=== PATIENT | female | born 1950 | race Caucasian/White ===

== ENCOUNTER 2017-03-15 11:43 | Inpatient (IN) | payer MEDICARE ==
[~2017-03-15] VITALS: Ht 170.2 cm; Wt 93.1 kg
[2017-03-15] MEDS: INSULIN ASPART 100 UNITS/ML, PEN SQ-INSULIN SCH ×5 (05:20→22:00)
[~2017-03-15 11:43] MED LIST: CALCIUM CHLORIDE 10%, 10ML SYR ONE
[2017-03-15] MEDS ORDERED: DEXTROSE 5% 1,000 ML IV SCH (12:00)
[2017-03-15] MEDS ORDERED: SODIUM CHLORIDE FLUSH 10ML SYR IVF ONE (12:00)
[2017-03-15] MEDS ORDERED: D5%-0.9% NACL 1,000 ML IV ONE (12:10)
[2017-03-15 12:40] LABS: BASOPHILS # (AUTO) 0.08 x10^3/uL (0-0.1); BASOPHILS % (AUTO) 1 % (0-1); EOSINOPHILS % (AUTO) 5 % (1-7); LYMPHOCYTES # (AUTO) 4.91 x10^3/uL (1-3.4); LYMPHOCYTES % (AUTO) 38 % (22-44); MD NO; MEAN CORPUSCULAR HGB CONC 33.3 g/dL (32.4-35.8); MEAN CORPUSCULAR VOLUME 90.1 fL (80-100); MONOCYTES % (AUTO) 6 % (2-9); NEUTROPHILS # (AUTO) 6.47 x10^3/uL (1.8-6.8); NEUTROPHILS % (AUTO) 50 % (42-75); PLATELET COUNT 355 x10^3/uL (130-400); RED BLOOD COUNT 3.76 x10^6/uL (3.82-5.3); RED CELL DISTRIBUTION WIDTH 13.8 % (9.6-15.2)
[2017-03-15 12:44] LABS: ALBUMIN 3.1 g/dL (3.4-5.0); ANION GAP 6 mmol/L (5-15); CALCIUM 8.1 mg/dL (8.5-10.1); CHLORIDE 105 mmol/L (98-107)
[2017-03-15 12:51] LABS: ALANINE AMINOTRANSFERASE 42 U/L (12-78); ALKALINE PHOSPHATASE 102 U/L (45-117); BILIRUBIN,TOTAL 0.5 mg/dL (0.2-1.0); CREATININE 1.53 mg/dL (0.55-1.02); TOTAL PROTEIN 7.2 g/dL (6.4-8.2); TROPONIN I 0.059 ng/mL (0.000-0.045)
[2017-03-15] MEDS ORDERED: CALCIUM CHLORIDE 10%, 10ML SYR ONE (12:53)
[2017-03-15] MEDS ORDERED: DEXTROSE 50%, 50ML SYRINGE ONE (12:54)
[2017-03-15] MEDS ORDERED: SODIUM POLYSTYRENE SULFONATE ORAL SUSP ONE (12:54)
[2017-03-15] MEDS ORDERED: INSULIN REGULAR 100 UNITS/ML, 3ML VIAL ONE (12:55)
[2017-03-15] MEDS ORDERED: DEXTROSE 50%, 50ML SYRINGE IVPush ONE (13:00)
[2017-03-15] MEDS ORDERED: FUROSEMIDE 40 MG/4 ML IVPush ONE (13:00)
[2017-03-15] MEDS ORDERED: SODIUM POLY SULFONATE UDC 15 GM/60 ML PO ONE (13:00)
[2017-03-15] MEDS ORDERED: INSULIN REGULAR 100 UNITS/ML, 3ML VIAL IVPush ONE (13:00)
[2017-03-15] MEDS ORDERED: CALCIUM CHLORIDE 10%, 10ML SYR IVPush ONE (13:00)
[2017-03-15] MEDS ORDERED: FUROSEMIDE 40 MG/4 ML ONE (13:06)
[2017-03-15] MEDS ORDERED: SODIUM CHLORIDE 0.9% 1,000 ML IV SCH (13:31)
[2017-03-15] MEDS ORDERED: ACETAMINOPHEN 325 MG TABLET PO PRN (14:00)
[2017-03-15] MEDS ORDERED: hydrALAzine 20 MG/ML, 1ML IV PRN (14:00)
[2017-03-15] MEDS ORDERED: POLYETHYLENE GLYCOL 17 GM PACKET PO PRN (14:00)
[2017-03-15] MEDS ORDERED: ONDANSETRON 2MG/ML, 2ML IVPush PRN (14:00)
[2017-03-15] MEDS ORDERED: morphine SULFATE 10 MG/ML, 1ML IVPush PRN (14:00)
[2017-03-15] MEDS: HEPARIN 5,000 UNITS/ML, 1ML SQ SCH ×2 (14:00→22:05)
[2017-03-15] MEDS ORDERED: DOCUSATE 100 MG CAPSULE PO PRN (14:00)
[2017-03-15] MEDS ORDERED: CARV12.543 PO (15:03)
[2017-03-15] MEDS ORDERED: GABA300C10 PO (15:03)
[2017-03-15] MEDS ORDERED: SPIR25TA3 PO (15:04)
[2017-03-15] MEDS ORDERED: LINA5TAB PO (15:04)
[2017-03-15] MEDS ORDERED: INSU100V8 SQ (15:04)
[2017-03-15] MEDS ORDERED: MELO15TA24 PO (15:04)
[2017-03-15] MEDS ORDERED: INSU100C SQ-INSULIN (15:04)
[2017-03-15] MEDS ORDERED: IRBE300T16 PO (15:04)
[2017-03-15] MEDS ORDERED: OMEP40CA6 PO (15:04)
[2017-03-15] MEDS ORDERED: DICL50TA2 PO (15:04)
[2017-03-15] MEDS ORDERED: GLYB5TAB3 PO (15:04)
[2017-03-15] MEDS ORDERED: ATOR40TA78 PO (15:04)
[2017-03-15] MEDS ORDERED: AMLO5TAB2 PO (15:04)
[2017-03-15 15:13] LABS: MICROSCOPIC NOT IND
[2017-03-15 15:18] LABS: CULTURE INDICATED? NO
[2017-03-15 15:18] LABS: HEMOGLOBIN A1C 8.9 % (4.2-6.3)
[2017-03-15] MEDS: GABAPENTIN 300 MG CAPSULE PO SCH ×2 (16:00→22:02)
[2017-03-15] MEDS ORDERED: OXYcodone IR 5MG TABLET PO PRN (16:00)
[2017-03-15 16:24] LABS: ANION GAP 6 mmol/L (5-15); CALCIUM 9.5 mg/dL (8.5-10.1); CHLORIDE 107 mmol/L (98-107)
[2017-03-15] MEDS ORDERED: CALCIUM CHLORIDE 13.6 MEQ in SODIUM CHLORIDE 0.9% 100 ML IV ONE (16:30)
[2017-03-15 16:39] LABS: CREATININE 1.47 mg/dL (0.55-1.02)
[2017-03-15 16:42] LABS: TROPONIN I 0.479 ng/mL (0.000-0.045)
[2017-03-15 18:06] LABS: ANION GAP 4 mmol/L (5-15); CALCIUM 8.9 mg/dL (8.5-10.1); CHLORIDE 105 mmol/L (98-107); CREATININE 1.02 mg/dL (0.55-1.02)
[2017-03-15 19:40] LABS: RAPID INFLUENZA A Negative (Negative); RAPID INFLUENZA B Negative (Negative)
[2017-03-15] MEDS: D5%-0.9% NACL 1,000 ML IV SCH (19:55)
[2017-03-15] MEDS ORDERED: DEXTROSE 4 GM TAB.CHEW PO PRN (20:00)
[2017-03-15] MEDS ORDERED: GLUCAGON 1 MG IM PRN (20:00)
[2017-03-15] MEDS ORDERED: DEXTROSE 50%, 50ML SYRINGE IVPush PRN (20:00)
[2017-03-15 20:29] LABS: ANION GAP 6 mmol/L (5-15); CALCIUM 8.4 mg/dL (8.5-10.1); CHLORIDE 101 mmol/L (98-107)
[2017-03-15] MEDS: ATORVASTATIN 40 MG TABLET PO SCH (22:02)
[2017-03-15] MEDS: SODIUM CHLORIDE FLUSH 10ML SYR IVF SCH (22:02)
[2017-03-15 22:36] LABS: ANION GAP 6 mmol/L (5-15); CALCIUM 8.5 mg/dL (8.5-10.1); CHLORIDE 104 mmol/L (98-107); CREATININE 0.84 mg/dL (0.55-1.02)
[2017-03-16 00:37] LABS: ANION GAP 6 mmol/L (5-15); CALCIUM 8.1 mg/dL (8.5-10.1); CHLORIDE 106 mmol/L (98-107); CREATININE 0.98 mg/dL (0.55-1.02)
[2017-03-16] MEDS: INSULIN ASPART 100 UNITS/ML, PEN SQ-INSULIN SCH ×10 (02:00→22:33)
[2017-03-16 02:32] LABS: ANION GAP 6 mmol/L (5-15); CHLORIDE 107 mmol/L (98-107); CREATININE 1.01 mg/dL (0.55-1.02)
[2017-03-16 04:00] VITALS: BP 102/68
[2017-03-16 04:30] LABS: ANION GAP 5 mmol/L (5-15); CALCIUM 8.1 mg/dL (8.5-10.1); CHLORIDE 107 mmol/L (98-107); CREATININE 1.03 mg/dL (0.55-1.02)
[2017-03-16] MEDS: D5%-0.9% NACL 1,000 ML IV SCH (05:37)
[2017-03-16] MEDS: HEPARIN 5,000 UNITS/ML, 1ML SQ SCH (06:01)
[2017-03-16 06:50] LABS: ANION GAP 6 mmol/L (5-15); CALCIUM 8.2 mg/dL (8.5-10.1); CHLORIDE 108 mmol/L (98-107); CREATININE 1.08 mg/dL (0.55-1.02)
[2017-03-16] MEDS: OMEPRAZOLE 20 MG CAPSULE.DR PO SCH (08:36)
[2017-03-16] MEDS: GABAPENTIN 300 MG CAPSULE PO SCH ×3 (08:36→22:32)
[2017-03-16] MEDS: SENNA/DOCUSATE TABLET PO SCH (08:36)
[2017-03-16] MEDS ORDERED: AMLODIPINE 5 MG TABLET PO SCH (09:00)
[2017-03-16] MEDS ORDERED: IRBESARTAN 300 MG TABLET PO SCH (09:00)
[2017-03-16] MEDS: D5%-0.45% NACL 1,000 ML IV SCH (11:51)
[2017-03-16] MEDS: SODIUM CHLORIDE FLUSH 10ML SYR IVF SCH ×2 (11:51→22:33)
[2017-03-16] MEDS ORDERED: HEPARIN 25,000 UNITS/500ML PMX 500 ML IV PRN ×2 (13:30→14:00)
[2017-03-16] MEDS ORDERED: PNEUMOCOCCAL 23 VACCINE IM-VACC ONE (14:00)
[2017-03-16 14:50] VITALS: BP 145/82
[2017-03-16] MEDS ORDERED: HEPARIN 5,000 UNITS/ML, 1ML IV ONE (15:30)
[2017-03-16] MEDS: HEPARIN 25,000 UNITS/500ML PMX 500 ML IV PRN (16:53)
[2017-03-16] MEDS: METOPROLOL TARTRATE 25 MG TABLET PO SCH (17:01)
[2017-03-16 21:16] VITALS: BP 122/76
[2017-03-16] MEDS: ATORVASTATIN 40 MG TABLET PO SCH (22:32)
[2017-03-17] VITALS (7 sets, daily range): BP systolic 128–164; BP diastolic 73–84
[2017-03-17] MEDS: HEPARIN 5,000 UNITS/ML, 1ML IV PRN ×3 (00:20→20:49)
[2017-03-17] MEDS: METOPROLOL TARTRATE 25 MG TABLET PO SCH ×2 (06:18→17:06)
[2017-03-17] MEDS: ASPIRIN 81 MG TABLET EC PO SCH (06:18)
[2017-03-17 06:58] LABS: BASOPHILS # (AUTO) 0.04 x10^3/uL (0-0.1); BASOPHILS % (AUTO) 0 % (0-1); EOSINOPHILS # (AUTO) 0.53 x10^3/uL (0-0.4); EOSINOPHILS % (AUTO) 6 % (1-7); LYMPHOCYTES # (AUTO) 3.66 x10^3/uL (1-3.4); LYMPHOCYTES % (AUTO) 39 % (22-44); MD NO; MEAN CORPUSCULAR HEMOGLOBIN 29.9 pg (27.0-34.8); MEAN CORPUSCULAR HGB CONC 33.1 g/dL (32.4-35.8); MEAN CORPUSCULAR VOLUME 90.3 fL (80-100); MEAN PLATELET VOLUME 7.4 fL (7.4-10.4); MONOCYTES % (AUTO) 9 % (2-9); NEUTROPHILS # (AUTO) 4.38 x10^3/uL (1.8-6.8); NEUTROPHILS % (AUTO) 47 % (42-75); PLATELET COUNT 306 x10^3/uL (130-400); RED BLOOD COUNT 3.48 x10^6/uL (3.82-5.3); RED CELL DISTRIBUTION WIDTH 13.2 % (9.6-15.2)
[2017-03-17] MEDS: INSULIN ASPART 100 UNITS/ML, PEN SQ-INSULIN SCH ×4 (07:00→20:40)
[2017-03-17 07:07] LABS: ALBUMIN 2.7 g/dL (3.4-5.0); ANION GAP 8 mmol/L (5-15); CALCIUM 8.1 mg/dL (8.5-10.1); CHLORIDE 108 mmol/L (98-107)
[2017-03-17 07:12] LABS: % IRON SATURATION 19 % (20-55); ALANINE AMINOTRANSFERASE 36 U/L (12-78); ALKALINE PHOSPHATASE 83 U/L (45-117); BILIRUBIN,TOTAL 0.3 mg/dL (0.2-1.0); CREATININE 1.07 mg/dL (0.55-1.02); IRON LEVEL 60 mcg/dL (50-170); TOTAL IRON BINDING CAPACITY 309 mcg/dL (250-450); TOTAL PROTEIN 6.4 g/dL (6.4-8.2)
[2017-03-17] MEDS: SENNA/DOCUSATE TABLET PO SCH (09:00)
[2017-03-17] MEDS ORDERED: MAGNESIUM SULFATE PMX 2GM/50ML 50 ML IV ONE (09:00)
[2017-03-17] MEDS ORDERED: IRBESARTAN 300 MG TABLET PO SCH (09:00)
[2017-03-17] MEDS: IRBESARTAN 150 MG TABLET PO SCH (10:49)
[2017-03-17] MEDS: GABAPENTIN 300 MG CAPSULE PO SCH ×3 (10:49→20:40)
[2017-03-17] MEDS: OMEPRAZOLE 20 MG CAPSULE.DR PO SCH (10:49)
[2017-03-17] MEDS: D5%-0.45% NACL 1,000 ML IV SCH (11:03)
[2017-03-17] MEDS: SODIUM CHLORIDE FLUSH 10ML SYR IVF SCH ×2 (11:04→20:40)
[2017-03-17] MEDS: FERROUS GLUCONATE 324 MG TABLET PO SCH (16:42)
[2017-03-17] MEDS: HEPARIN 25,000 UNITS/500ML PMX 500 ML IV PRN (18:23)
[2017-03-17] MEDS: ATORVASTATIN 40 MG TABLET PO SCH (20:40)
[2017-03-18 00:45] VITALS: BP 137/75
[2017-03-18 03:17] LABS: BASOPHILS # (AUTO) 0.07 x10^3/uL (0-0.1); BASOPHILS % (AUTO) 1 % (0-1); EOSINOPHILS # (AUTO) 0.67 x10^3/uL (0-0.4); EOSINOPHILS % (AUTO) 6 % (1-7); LYMPHOCYTES # (AUTO) 3.74 x10^3/uL (1-3.4); LYMPHOCYTES % (AUTO) 33 % (22-44); MD NO; MEAN CORPUSCULAR HEMOGLOBIN 30.2 pg (27.0-34.8); MEAN PLATELET VOLUME 7.6 fL (7.4-10.4); MONOCYTES # (AUTO) 0.92 x10^3/uL (0.2-0.8); MONOCYTES % (AUTO) 8 % (2-9); NEUTROPHILS # (AUTO) 6.08 x10^3/uL (1.8-6.8); NEUTROPHILS % (AUTO) 53 % (42-75); PLATELET COUNT 306 x10^3/uL (130-400); RED BLOOD COUNT 3.48 x10^6/uL (3.82-5.3); RED CELL DISTRIBUTION WIDTH 13.5 % (9.6-15.2)
[2017-03-18 03:28] LABS: ALANINE AMINOTRANSFERASE 28 U/L (12-78); ALBUMIN 2.9 g/dL (3.4-5.0); ANION GAP 6 mmol/L (5-15); CALCIUM 8.1 mg/dL (8.5-10.1); CHLORIDE 106 mmol/L (98-107); CREATININE 1.12 mg/dL (0.55-1.02)
[2017-03-18 03:30] LABS: ALKALINE PHOSPHATASE 92 U/L (45-117); BILIRUBIN,TOTAL 0.5 mg/dL (0.2-1.0); TOTAL PROTEIN 6.5 g/dL (6.4-8.2)
[2017-03-18 06:20] VITALS: BP 151/77
[2017-03-18] MEDS: ASPIRIN 81 MG TABLET EC PO SCH (06:20)
[2017-03-18] MEDS: METOPROLOL TARTRATE 25 MG TABLET PO SCH ×2 (06:21→17:18)
[2017-03-18] MEDS: INSULIN ASPART 100 UNITS/ML, PEN SQ-INSULIN SCH ×4 (07:00→22:26)
[2017-03-18] MEDS: SENNA/DOCUSATE TABLET PO SCH (07:32)
[2017-03-18] MEDS: IRBESARTAN 150 MG TABLET PO SCH (07:32)
[2017-03-18 08:04] VITALS: BP 149/79
[2017-03-18] MEDS: D5%-0.45% NACL 1,000 ML IV SCH (08:16)
[2017-03-18] MEDS: GABAPENTIN 300 MG CAPSULE PO SCH ×3 (08:16→20:18)
[2017-03-18] MEDS: SODIUM CHLORIDE FLUSH 10ML SYR IVF SCH ×2 (08:16→20:19)
[2017-03-18] MEDS: FERROUS GLUCONATE 324 MG TABLET PO SCH ×2 (08:16→17:18)
[2017-03-18] MEDS: OMEPRAZOLE 20 MG CAPSULE.DR PO SCH (08:16)
[2017-03-18] MEDS ORDERED: ERGOCALCIFEROL 50,000 UNIT CAPSULE PO SCH (09:00)
[2017-03-18] MEDS ORDERED: MIDAZOLAM 1 MG/ML, 5ML ONE (12:20)
[2017-03-18] MEDS ORDERED: HEPARIN 1,000 UNITS/ML, 10ML ONE (12:21)
[2017-03-18] MEDS ORDERED: PRASUGREL 10 MG TABLET ONE (12:21)
[2017-03-18] MEDS ORDERED: LIDOCAINE 2%, 20ML ONE (12:21)
[2017-03-18] MEDS ORDERED: VERAPAMIL 2.5 MG/ML, 2ML ONE (12:21)
[2017-03-18] MEDS ORDERED: TICAGRELOR 90 MG TABLET ONE (12:21)
[2017-03-18] MEDS ORDERED: BIVALIRUDIN 250 MG ONE (12:21)
[2017-03-18] MEDS ORDERED: FENTANYL PF 100 MCG/2ML ONE (12:21)
[2017-03-18] MEDS ORDERED: SODIUM CHLORIDE 0.9% 1,000 ML IV SCH (13:20)
[2017-03-18] MEDS ORDERED: BIVALIRUDIN 250 MG in DEXTROSE 5% 50 ML IV SCH (13:20)
[2017-03-18] MEDS: HYDROcodone/APAP 5/325 TABLET PO PRN ×2 (13:58→20:18)
[2017-03-18 14:30] VITALS: BP 152/76
[2017-03-18 19:00] VITALS: BP 171/76
[2017-03-18 19:35] VITALS: BP 153/76
[2017-03-18] MEDS: ATORVASTATIN 40 MG TABLET PO SCH (20:18)
[2017-03-18] MEDS: TICAGRELOR 90 MG TABLET PO SCH (20:19)
[2017-03-19 02:27] VITALS: BP 136/71
[2017-03-19 05:07] VITALS: BP 126/76
[2017-03-19] MEDS: METOPROLOL TARTRATE 25 MG TABLET PO SCH (05:08)
[2017-03-19] MEDS: ASPIRIN 81 MG TABLET EC PO SCH (05:08)
[2017-03-19 05:21] LABS: BASOPHILS # (AUTO) 0.05 x10^3/uL (0-0.1); BASOPHILS % (AUTO) 1 % (0-1); EOSINOPHILS % (AUTO) 3 % (1-7); LYMPHOCYTES # (AUTO) 2.18 x10^3/uL (1-3.4); LYMPHOCYTES % (AUTO) 22 % (22-44); MD NO; MEAN CORPUSCULAR HEMOGLOBIN 30.2 pg (27.0-34.8); MEAN CORPUSCULAR HGB CONC 33.8 g/dL (32.4-35.8); MEAN CORPUSCULAR VOLUME 89.5 fL (80-100); MEAN PLATELET VOLUME 7.5 fL (7.4-10.4); MONOCYTES # (AUTO) 0.93 x10^3/uL (0.2-0.8); MONOCYTES % (AUTO) 9 % (2-9); NEUTROPHILS # (AUTO) 6.42 x10^3/uL (1.8-6.8); NEUTROPHILS % (AUTO) 65 % (42-75); PLATELET COUNT 306 x10^3/uL (130-400); RED BLOOD COUNT 3.55 x10^6/uL (3.82-5.3); RED CELL DISTRIBUTION WIDTH 13.1 % (9.6-15.2)
[2017-03-19 05:23] LABS: ALBUMIN 2.8 g/dL (3.4-5.0); ANION GAP 6 mmol/L (5-15); CALCIUM 8.3 mg/dL (8.5-10.1); CHLORIDE 106 mmol/L (98-107)
[2017-03-19 05:28] LABS: ALANINE AMINOTRANSFERASE 57 U/L (12-78); ALKALINE PHOSPHATASE 164 U/L (45-117); BILIRUBIN,TOTAL 0.7 mg/dL (0.2-1.0); CREATININE 1.09 mg/dL (0.55-1.02); TOTAL PROTEIN 6.5 g/dL (6.4-8.2)
[2017-03-19] MEDS: INSULIN ASPART 100 UNITS/ML, PEN SQ-INSULIN SCH ×2 (07:00→11:38)
[2017-03-19] MEDS: D5%-0.45% NACL 1,000 ML IV SCH (07:39)
[2017-03-19] MEDS: FERROUS GLUCONATE 324 MG TABLET PO SCH (08:00)
[2017-03-19 08:13] VITALS: BP 155/86
[2017-03-19] MEDS: SODIUM CHLORIDE FLUSH 10ML SYR IVF SCH (08:31)
[2017-03-19] MEDS: OMEPRAZOLE 20 MG CAPSULE.DR PO SCH (08:32)
[2017-03-19] MEDS: TICAGRELOR 90 MG TABLET PO SCH (08:32)
[2017-03-19] MEDS: SENNA/DOCUSATE TABLET PO SCH (08:32)
[2017-03-19] MEDS: GABAPENTIN 300 MG CAPSULE PO SCH (08:32)
[2017-03-19] MEDS: IRBESARTAN 150 MG TABLET PO SCH (08:32)
[2017-03-19] MEDS ORDERED: MAGN64TA9 PO (12:29)
[2017-03-19] MEDS ORDERED: METO25TA35 PO (12:29)
[2017-03-19] MEDS ORDERED: FERR325T16 PO (12:29)
[2017-03-19] MEDS ORDERED: ERGO500017 PO (12:29)
[2017-03-19] MEDS ORDERED: DOCU-131 PO (12:29)
[2017-03-19] MEDS ORDERED: ASPI-621 PO (12:29)
[2017-03-19] MEDS ORDERED: TICA90TA PO (12:29)
[2017-03-19] MEDS ORDERED: MAGNESIUM CHLORIDE 64 MG TABLET.DR PO SCH (12:30)
== END 2017-03-19 16:00 | disposition home health service (06) | DRG 246 ==
LOC: ED 12:43 → EDIP 12:44 → ED 13:07 → CCU 16:46 → ICU 20:49 → 5SO 03-16 14:59 → DCLOUNGE 03-19 15:45
PROVIDERS: ADMIT Hospitalist; ATTEND Family Medicine
PROC: 5A1D70Z Performance of Urinary Filtration, Intermittent, Less than 6 Hours Per Day (ICD-10-PCS; 2017-03-15)
PROC: 02HV33Z Insertion of Infusion Device into Superior Vena Cava, Percutaneous Approach (ICD-10-PCS; 2017-03-15)
PROC: 027034Z Dilation of Coronary Artery, One Artery with Drug-eluting Intraluminal Device, Percutaneous Approach (ICD-10-PCS; principal; 2017-03-18)
PROC: 4A023N7 Measurement of Cardiac Sampling and Pressure, Left Heart, Percutaneous Approach (ICD-10-PCS; 2017-03-18)
PROC: B2111ZZ Fluoroscopy of Multiple Coronary Arteries using Low Osmolar Contrast (ICD-10-PCS; 2017-03-18)
PROC: B2151ZZ Fluoroscopy of Left Heart using Low Osmolar Contrast (ICD-10-PCS; 2017-03-18)
DX: I21.4 Non-ST elevation (NSTEMI) myocardial infarction (principal); G93.40 Encephalopathy, unspecified; N17.0 Acute kidney failure with tubular necrosis; E87.2 Acidosis; E11.22 Type 2 diabetes mellitus with diabetic chronic kidney disease; I27.20 Pulmonary hypertension, unspecified; E83.42 Hypomagnesemia; E87.1 Hypo-osmolality and hyponatremia; E87.5 Hyperkalemia; R00.1 Bradycardia, unspecified; I25.10 Atherosclerotic heart disease of native coronary artery without angina pectoris; E11.649 Type 2 diabetes mellitus with hypoglycemia without coma; E78.5 Hyperlipidemia, unspecified; N18.3 Chronic kidney disease, stage 3 (moderate); D63.8 Anemia in other chronic diseases classified elsewhere; G47.33 Obstructive sleep apnea (adult) (pediatric); T50.0X5A Adverse effect of mineralocorticoids and their antagonists, initial encounter; D50.9 Iron deficiency anemia, unspecified; E66.9 Obesity, unspecified; I12.9 Hypertensive chronic kidney disease with stage 1 through stage 4 chronic kidney disease, or unspecified chronic kidney disease; Z86.73 Personal history of transient ischemic attack (TIA), and cerebral infarction without residual deficits; Z68.32 Body mass index [BMI] 32.0-32.9, adult; Z83.3 Family history of diabetes mellitus; Z80.3 Family history of malignant neoplasm of breast; Z79.899 Other long term (current) drug therapy; Z82.49 Family history of ischemic heart disease and other diseases of the circulatory system; Z80.1 Family history of malignant neoplasm of trachea, bronchus and lung; Y92.89 Other specified places as the place of occurrence of the external cause; Z79.4 Long term (current) use of insulin; Z90.710 Acquired absence of both cervix and uterus
CPT/HCPCS: 36415; 36569; 70450; 71045; 76937; 77001; 80047; 80048; 80053; 81003; 82306; 82728; 82962; 83036; 83540; 83550; 83605; 83735; 84100; 84484; 84550; 85025; 85520; 86704; 86706; 87081; 87340; 87400; 90732; 93005; 93306; 93458; 96361; 96365; 96375; 99156; 99292; C1769; C1894; C9600; J0583; J1644; J1815; J1940; J2250; J3010; J3490; J7042; C1751; C1874; C1887; J1642; J3475; J7030; Q9967

== ENCOUNTER → 2017-05-30 | Outpatient (CLI) | payer MEDICARE ==
[~2017-05-30] MED LIST changes: +AMLO5TAB2 PO; +ASPI-621 PO; +ATOR40TA78 PO; -CALCIUM CHLORIDE 10%, 10ML SYR ONE; +CARV12.543 PO; +DICL50TA2 PO; +DOCU-131 PO; +ERGO500017 PO; +FERR325T16 PO; +GABA300C10 PO; +GLYB5TAB3 PO; +INSU100C SQ-INSULIN; +INSU100V8 SQ; +IRBE300T16 PO; +LINA5TAB PO; +MAGN64TA9 PO; +MELO15TA24 PO; +METO25TA35 PO; +OMEP40CA6 PO; +REGADENOSON 0.4 MG/5 ML SYRINGE ONE; +SPIR25TA3 PO; +TICA90TA PO
== END | disposition home or self-care (01) ==
LOC: RAD 07:31
PROVIDERS: ATTEND Nurse Practitioner Family
DX: I25.10 Atherosclerotic heart disease of native coronary artery without angina pectoris (principal)
CPT/HCPCS: 78452; 93017; A9502; J2785

== ENCOUNTER 2017-06-24 19:12 | Inpatient (IN) | payer MEDICARE ==
[~2017-06-24] VITALS: Ht 162.6 cm; Wt 88.4 kg
[~2017-06-24 19:12] MED LIST changes: -AMLO10TA2 PO; -CLOP75TA PO; -GADOBUTROL 7.5 MMOL/7.5 ML PFS ONE
[2017-06-24] MEDS ORDERED: SODIUM CHLORIDE FLUSH 10ML SYR IVF ONE (19:30)
[2017-06-24 19:46] LABS: BASOPHILS # (AUTO) 0.11 x10^3/uL (0-0.1); BASOPHILS % (AUTO) 1 % (0-1); EOSINOPHILS # (AUTO) 0.23 x10^3/uL (0-0.4); EOSINOPHILS % (AUTO) 2 % (1-7); LYMPHOCYTES # (AUTO) 4.65 x10^3/uL (1-3.4); LYMPHOCYTES % (AUTO) 37 % (22-44); MD NO; MEAN CORPUSCULAR HEMOGLOBIN 31.2 pg (27.0-34.8); MEAN CORPUSCULAR HGB CONC 34.3 g/dL (32.4-35.8); MEAN CORPUSCULAR VOLUME 90.9 fL (80-100); MEAN PLATELET VOLUME 7.6 fL (7.4-10.4); MONOCYTES # (AUTO) 0.78 x10^3/uL (0.2-0.8); MONOCYTES % (AUTO) 6 % (2-9); NEUTROPHILS # (AUTO) 6.88 x10^3/uL (1.8-6.8); NEUTROPHILS % (AUTO) 54 % (42-75); PLATELET COUNT 343 x10^3/uL (130-400); RED BLOOD COUNT 4.55 x10^6/uL (3.82-5.3)
[2017-06-24 19:55] LABS: INTERNATIONAL NORMALIZED RATIO 0.93 (0.93-1.1); PROTHROMBIN TIME 9.6 Seconds (9.6-11.5)
[2017-06-24 19:57] LABS: ALBUMIN 3.7 g/dL (3.4-5.0); ANION GAP 9 mmol/L (5-15); CALCIUM 8.8 mg/dL (8.5-10.1); CHLORIDE 102 mmol/L (98-107); CREATININE 1.27 mg/dL (0.55-1.02)
[2017-06-24] MEDS ORDERED: CLOP75TA PO (20:01)
[2017-06-24] MEDS ORDERED: AMLO10TA2 PO (20:01)
[2017-06-24] MEDS ORDERED: LABETALOL 5MG/ML, 20ML ONE (20:59)
[2017-06-24] MEDS ORDERED: LEVETIRACETAM 500 MG in SODIUM CHLORIDE 0.9% 100 ML IV ONE (21:00)
[2017-06-24] MEDS ORDERED: LABETALOL 5MG/ML, 20ML IVPush ONE (21:00)
[2017-06-24] MEDS ORDERED: LABETALOL 5MG/ML, 20ML IV PRN (22:00)
[2017-06-24] MEDS ORDERED: hydrALAzine 20 MG/ML, 1ML IV PRN (22:00)
[2017-06-24] MEDS ORDERED: morphine SULFATE 10 MG/ML, 1ML IVPush PRN (22:00)
[2017-06-24] MEDS ORDERED: ONDANSETRON 2MG/ML, 2ML IVPush PRN (22:00)
[2017-06-24] MEDS ORDERED: ERGOCALCIFEROL 50,000 UNIT CAPSULE PO SCH (22:00)
[2017-06-24] MEDS ORDERED: INSTRUCTION SEE COMMENTS XX ONE (22:00)
[2017-06-24] MEDS ORDERED: INSULIN GLARGINE 100 UNITS/ML, PEN SQ-INSULIN SCH (22:00)
[2017-06-24] MEDS ORDERED: LABETALOL 5MG/ML, 20ML IVPush PRN (22:00)
[2017-06-24 22:21] LABS: FREE T4 (FREE THYROXINE) 1.08 ng/dL (0.76-1.46)
[2017-06-24] MEDS ORDERED: LEVETIRACETAM 500 MG in SODIUM CHLORIDE 0.9% 100 ML IV SCH (22:30)
[2017-06-24] MEDS ORDERED: SODIUM CHLORIDE 0.9% 1,000 ML IV SCH (22:30)
[2017-06-24 22:44] VITALS: BP 151/70
[2017-06-24] MEDS: INSULIN LISPRO 100 UNITS/ML, PEN SQ-INSULIN SCH (23:06)
[2017-06-24] MEDS: AMLODIPINE 5 MG TABLET PO SCH (23:06)
[2017-06-25 03:25] VITALS: BP 139/63
[2017-06-25 04:40] LABS: BASOPHILS # (AUTO) 0.06 x10^3/uL (0-0.1); BASOPHILS % (AUTO) 1 % (0-1); EOSINOPHILS # (AUTO) 0.24 x10^3/uL (0-0.4); EOSINOPHILS % (AUTO) 3 % (1-7); LYMPHOCYTES # (AUTO) 3.18 x10^3/uL (1-3.4); LYMPHOCYTES % (AUTO) 38 % (22-44); MD NO; MEAN CORPUSCULAR HEMOGLOBIN 31.1 pg (27.0-34.8); MEAN CORPUSCULAR VOLUME 91.5 fL (80-100); MEAN PLATELET VOLUME 7.6 fL (7.4-10.4); MONOCYTES # (AUTO) 0.66 x10^3/uL (0.2-0.8); MONOCYTES % (AUTO) 8 % (2-9); NEUTROPHILS # (AUTO) 4.15 x10^3/uL (1.8-6.8); NEUTROPHILS % (AUTO) 50 % (42-75); PLATELET COUNT 279 x10^3/uL (130-400); RED BLOOD COUNT 3.86 x10^6/uL (3.82-5.3); RED CELL DISTRIBUTION WIDTH 13.1 % (9.6-15.2)
[2017-06-25 04:44] LABS: CHLORIDE 108 mmol/L (98-107)
[2017-06-25 04:54] LABS: ALANINE AMINOTRANSFERASE 27 U/L (12-78); ALBUMIN 2.8 g/dL (3.4-5.0); ALKALINE PHOSPHATASE 82 U/L (45-117); ANION GAP 7 mmol/L (5-15); BILIRUBIN,TOTAL 0.3 mg/dL (0.2-1.0); CALCIUM 8.4 mg/dL (8.5-10.1); CHOLESTEROL, TOTAL 129 mg/dL (140-239); CREATININE 1.15 mg/dL (0.55-1.02); HDL CHOL % 25 % (28-40); HDL CHOLESTEROL (DIRECT) 32 mg/dL (40-60); LDL CHOLESTEROL,CALCULATED 58 mg/dL (54-169); LDL/HDL RATIO 1.8 (0.5-3.0); TOTAL PROTEIN 6.5 g/dL (6.4-8.2); TRIGLYCERIDES 197 mg/dL (50-200); VLDL CHOLESTEROL 39 mg/dL (0-25)
[2017-06-25] MEDS: METOPROLOL TARTRATE 25 MG TABLET PO SCH ×2 (06:00→17:47)
[2017-06-25] MEDS: INSULIN LISPRO 100 UNITS/ML, PEN SQ-INSULIN SCH ×4 (06:15→21:42)
[2017-06-25] MEDS ORDERED: FAMOTIDINE 20 MG/2 ML IVPush SCH (09:00)
[2017-06-25] MEDS: ATORVASTATIN 40 MG TABLET PO SCH (09:06)
[2017-06-25] MEDS: AMLODIPINE 5 MG TABLET PO SCH ×2 (09:06→21:41)
[2017-06-25] MEDS: GABAPENTIN 300 MG CAPSULE PO SCH ×3 (09:06→21:41)
[2017-06-25] MEDS: LEVETIRACETAM 500 MG in SODIUM CHLORIDE 0.9% 100 ML IV SCH ×2 (09:54→22:59)
[2017-06-25 16:51] VITALS: BP 150/82
[2017-06-25 19:38] VITALS: BP 147/74
[2017-06-25] MEDS ORDERED: SODIUM CHLORIDE 0.9% 1,000 ML IV PRN (22:30)
[2017-06-26 01:13] VITALS: BP 138/79
[2017-06-26] MEDS: METOPROLOL TARTRATE 25 MG TABLET PO SCH ×2 (05:40→17:36)
[2017-06-26 08:14] VITALS: BP 128/69
[2017-06-26] MEDS: INSULIN LISPRO 100 UNITS/ML, PEN SQ-INSULIN SCH ×4 (09:01→21:17)
[2017-06-26] MEDS: AMLODIPINE 5 MG TABLET PO SCH ×2 (09:01→21:17)
[2017-06-26] MEDS: GABAPENTIN 300 MG CAPSULE PO SCH ×3 (09:01→21:17)
[2017-06-26] MEDS: LEVETIRACETAM 500 MG in SODIUM CHLORIDE 0.9% 100 ML IV SCH (09:01)
[2017-06-26] MEDS: ATORVASTATIN 40 MG TABLET PO SCH (09:01)
[2017-06-26 13:50] VITALS: BP 144/81
[2017-06-26 19:27] VITALS: BP 151/87
[2017-06-27 00:34] VITALS: BP 146/77
[2017-06-27] MEDS ORDERED: ASPIRIN 81 MG TABLET EC PO SCH (06:00)
[2017-06-27] MEDS ORDERED: CLOPIDOGREL 75 MG TABLET PO SCH (06:00)
[2017-06-27] MEDS: METOPROLOL TARTRATE 25 MG TABLET PO SCH (06:11)
[2017-06-27 07:15] VITALS: BP 129/75
[2017-06-27] MEDS: ATORVASTATIN 40 MG TABLET PO SCH (10:05)
[2017-06-27] MEDS: GABAPENTIN 300 MG CAPSULE PO SCH (10:05)
[2017-06-27] MEDS: INSULIN LISPRO 100 UNITS/ML, PEN SQ-INSULIN SCH ×2 (10:05→11:51)
[2017-06-27] MEDS: AMLODIPINE 5 MG TABLET PO SCH (10:05)
[2017-06-27 13:18] VITALS: BP 153/70
[2017-06-27 14:03] VITALS: BP 134/72
[2017-06-27] MEDS ORDERED: AMLO10TA2 PO (15:13)
[2017-06-27] MEDS ORDERED: INSULIN GLARGINE 100 UNITS/ML, PEN SQ-INSULIN ONE (15:30)
== END 2017-06-27 17:28 | disposition home health service (06) | DRG 64 ==
LOC: ED 19:55 → EDIP 21:09 → CCU 22:16 → 4WST 06-25 16:41
PROVIDERS: ADMIT Hospitalist; ATTEND Hospitalist
DX: I62.9 Nontraumatic intracranial hemorrhage, unspecified (principal); N17.0 Acute kidney failure with tubular necrosis; E87.1 Hypo-osmolality and hyponatremia; I16.9 Hypertensive crisis, unspecified; D72.829 Elevated white blood cell count, unspecified; E11.65 Type 2 diabetes mellitus with hyperglycemia; E55.9 Vitamin D deficiency, unspecified; E66.9 Obesity, unspecified; E78.5 Hyperlipidemia, unspecified; I10 Essential (primary) hypertension; I25.10 Atherosclerotic heart disease of native coronary artery without angina pectoris; G47.33 Obstructive sleep apnea (adult) (pediatric); I27.20 Pulmonary hypertension, unspecified; I35.8 Other nonrheumatic aortic valve disorders; I25.2 Old myocardial infarction; Z79.82 Long term (current) use of aspirin; Z95.5 Presence of coronary angioplasty implant and graft; Z86.73 Personal history of transient ischemic attack (TIA), and cerebral infarction without residual deficits; Z68.33 Body mass index [BMI] 33.0-33.9, adult
CPT/HCPCS: 36415; 70450; 71045; 80048; 80053; 80061; 82040; 82962; 83735; 84100; 84439; 85025; 85610; 85730; 87081; 93005; 93306; 93880; 96365; 96375; J1953; 92523-GN; J1815; J7030

== ENCOUNTER → 2017-06-24 | Outpatient (CLI) | payer MEDICARE ==
[~2017-06-24] MED LIST changes: +AMLO10TA2 PO; +CLOP75TA PO; +GADOBUTROL 7.5 MMOL/7.5 ML PFS ONE; -REGADENOSON 0.4 MG/5 ML SYRINGE ONE
== END | disposition home or self-care (01) ==
LOC: RAD 15:31
PROVIDERS: ATTEND Family Medicine
DX: I63.40 Cerebral infarction due to embolism of unspecified cerebral artery (principal); G93.89 Other specified disorders of brain; Q28.3 Other malformations of cerebral vessels; G45.8 Other transient cerebral ischemic attacks and related syndromes
CPT/HCPCS: 70553; A9585

== ENCOUNTER → 2017-09-06 | Outpatient (CLI) | payer MEDICARE ==
[~2017-09-06] MED LIST changes: +AMLO10TA2 PO; +CLOP75TA PO; +FURO20TA3 PO; +GLYB2.5T2 PO; -MAGN64TA9 PO; +MAGNESIUM DR64 MG PO
== END | disposition home or self-care (01) ==
LOC: CFH 11:00
PROVIDERS: ATTEND Nurse Practitioner Family
DX: J18.9 Pneumonia, unspecified organism (principal)
CPT/HCPCS: 71046

== ENCOUNTER → 2017-11-13 | Outpatient (CLI) | payer MEDICARE ==
[~2017-11-13] MED LIST changes: -AMLO10TA2 PO; +AMLO10TA6 PO; -AMLO5TAB2 PO; +AMLO5TAB7 PO; -SPIR25TA3 PO; +SPIR25TA5 PO
== END | disposition home or self-care (01) ==
LOC: CFH 12:56
PROVIDERS: ATTEND Nurse Practitioner Family
DX: K59.00 Constipation, unspecified (principal)
CPT/HCPCS: 74022

== ENCOUNTER → 2017-12-04 | Outpatient (CLI) | payer MEDICARE ==
[~2017-12-04] MED LIST changes: +OMNIPAQUE 350 MG/ML, 100ML BOTTLE ONE
== END | disposition home or self-care (01) ==
LOC: CFH 12:07
PROVIDERS: ATTEND Nurse Practitioner Family
DX: R41.0 Disorientation, unspecified (principal); R41.3 Other amnesia; E11.9 Type 2 diabetes mellitus without complications; Z86.73 Personal history of transient ischemic attack (TIA), and cerebral infarction without residual deficits
CPT/HCPCS: 70470; 82565; Q9967

== ENCOUNTER → 2017-12-05 | Outpatient (CLI) | payer MEDICARE ==
[~2017-12-05] MED LIST changes: +GADOBUTROL 7.5 MMOL/7.5 ML PFS ONE; -OMNIPAQUE 350 MG/ML, 100ML BOTTLE ONE
== END | disposition home or self-care (01) ==
LOC: RAD 09:39
PROVIDERS: ATTEND Nurse Practitioner Family
DX: I61.9 Nontraumatic intracerebral hemorrhage, unspecified (principal); G93.6 Cerebral edema; D17.79 Benign lipomatous neoplasm of other sites; C71.9 Malignant neoplasm of brain, unspecified
CPT/HCPCS: 70553; A9585